=== PATIENT | female | born 2000 | race Caucasian/White ===

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

== ENCOUNTER 2019-12-01 17:58 | Emergency (ER) | payer OTHER ==
[~2019-12-01] VITALS: Ht 165.1 cm; Wt 52.2 kg
--- NOTE | 2019-12-01 19:04 | PHYS DOC ---
Past History Past Medical History: Anxiety, Other Past Surgical History: No Surgical History Smoking: Non-smoker Alcohol Use: None Drug Use: None General Adult EDM: Chief Complaint: MULTIPLE COMPLAINTS HPI: HPI: Patient is a 18-year-old female who presented to ER today for evaluation of head injury and left hand injury. Patient says she was talking on the phone with somebody, had an argument on the phone with that person, she became very upset, she then punched the window with her left hand and then hit her head against a window as well. Patient denies loss of consciousness. Patient complained of headache and facial pain. Patient also complained of left hand pain. Patient adamantly denies suicidal ideation, denies homicidal patient. Review of Systems: Review of Systems: Constitutional: Denies fever or chills Eyes: Denies change in visual acuity HENT: Denies nasal congestion or sore throat Respiratory: Denies cough or shortness of breath Cardiovascular: Denies chest pain or edema GI: Denies abdominal pain, nausea, vomiting, bloody stools or diarrhea : Denies dysuria Musculoskeletal: Denies back pain , positive for left hand pain. Integument: Denies rash Neurologic: Positive for headache, no focal weakness or sensory changes Endocrine: Denies polyuria or polydipsia Lymphatic: Denies swollen glands Psychiatric: Denies depression or anxiety Heart Score: Risk Factors: Risk Factors: DM, Current or recent (<one month) smoker, HTN, HLP, family h istory of CAD, obesity. Risk Scores: Score 0 - 3: 2.5% MACE over next 6 weeks - Discharge Home Score 4 - 6: 20.3% MACE over next 6 weeks - Admit for Clinical Observation Score 7 - 10: 72.7% MACE over next 6 weeks - Early Invasive Strategies Allergies: Allergies: Allergies Coded Allergies Type Severity Reaction Last Updated Verified No Known Drug Allergies 08/12/14 No Physical Exam: PE: Constitutional: Well developed, well nourished, no acute distress, non-toxic appearance. [] HENT: Normocephalic, bilateral external ears normal, oropharynx moist, no oral exudates, nose normal. [] Eyes: PERRLA, EOMI, conjunctiva normal, no discharge. Right periorbital contusion, no hyphema, no conjunctival hemorrhage. Neck: Normal range of motion, no tenderness, supple, no stridor. [] Cardiovascular:Heart rate regular rhythm, no murmur [] Lungs & Thorax: Bilateral breath sounds clear to auscultation [] Abdomen: Bowel sounds normal, soft, no tenderness, no masses, no pulsatile masses. [] Skin: Warm, dry, no erythema, no rash. [] Back: No tenderness, no CVA tenderness. [] Extremities: There is bruised and tender to palpation at the fourth and fifth metacarpal bone of the left hand ,no cyanosis, no clubbing, ROM intact, no edema. [] Neurologic: Alert and oriented X 3, normal motor function, normal sensory function, no focal deficits noted. [] Psychologic: Affect normal, judgement normal, mood normal. [] Current Patient Data: Vital Signs: Vital Signs Date Time Temp Pulse Resp B/P (MAP) Pulse Ox O2 Delivery O2 Flow Rate FiO2 12/01/19 18:00 98.2 94 20 128/74 (92) 97 12/01/19 17:58 Room Air EKG: EKG: [] Radiology/Procedures: Radiology/Procedures: [][place] [address] IMAGING REPORT Signed PATIENT: EARL PARR ACCOUNT: [id number] : 2000 LOCATION: ER AGE: 18 SEX: F EXAM STATUS: REG ER ORD. PHYSICIAN: TULIO BAUTISTA DO REASON: hit head and face through window PROCEDURE: CT HEAD AND MAXILLOFACIAL WO Exam: CT head and maxillofacial without contrast INDICATION: Hit head and face through window TECHNIQUE: Sequential axial images through the head and face were obtained without the administration of IV contrast. Comparisons: None FINDINGS: Head: No focal parenchymal lesion or hemorrhage is identified. There is no midline shift or sulcal effacement. No acute vascular territory infarction is identified. Jenkins-white distinction is preserved. The ventricular system is within normal limits without compression hydrocephalus. The basal cisterns are well maintained. Face: Mild extra cranial soft tissue scalp contusion overlying the right globe. Globes and intraorbital contents are normal. The visualized portions of the paranasal sinuses and mastoid air cells are well-pneumatized. No acute fractures. IMPRESSION: 1. No acute intracranial abnormality. 2. Mild extra cranial soft tissue scalp contusion overlying the right globe. Underlying globe and intraorbital contents are unremarkable. No acute fracture. Exposure: One or more of the following in the visualized dose reduction techniques were utilized for this examination: 1. Automated exposure control 2. Adjustment of the MA and/or KV according to patient size Use of iterative of reconstructive technique Electronically signed by: Laila Gonzalez MD (12/01/2019 9:03 PM) [id number] DICTATED AND SIGNED BY: LAILA GONZALEZ MD DATE: 12/01/192102 CC: TULIO BAUTISTA DO; MAUREEN LEE ~ Course & Med Decision Making: Course & Med Decision Making Pertinent Labs and Imaging studies reviewed. (See chart for details) [] Dragon Disclaimer: Dragon Disclaimer: This electronic medical record was generated, in whole or in part, using a voice recognition dictation system. Departure Departure: Impression: Primary Impression: Facial contusion Additional Impressions: Contusion of left hand Head injury Disposition: 01 HOME/RESIDENCE PRIOR TO ADM Condition: STABLE Referrals: MAUREEN LEE (PCP) please follow up with your doctor next week as needed Patient Instructions: Contusion, Facial or Scalp Contusion, Head Injury, Adult Scripts Ibuprofen (IBUPROFEN) 400 Mg Tablet 1 TAB PO PRN Q6HRS PRN for PAIN, #20 TAB Prov: TULIO BAUTISTA DO 12/01/19 Justification of Admission: Justification of Admission: Justification of Admission Dx: N/A TULIO BAUTISTA DO Dec 01, 2019 19:04
[2019-12-01 20:30] VITALS: BP 113/74
[2019-12-01] MEDS ORDERED: NEOMY/BACITR/POLYMYXIN OINT PACKET. TP ONE (20:35)
[2019-12-01] MEDS ORDERED: ACETAMINOPHEN 500 MG TABLET PO ONE (20:45)
--- NOTE | 2019-12-01 21:06 | RAD ---
Exam: CT head and maxillofacial without contrast INDICATION: Hit head and face through window TECHNIQUE: Sequential axial images through the head and face were obtained without the administration of IV contrast. Comparisons: None FINDINGS: Head: No focal parenchymal lesion or hemorrhage is identified. There is no midline shift or sulcal effacement. No acute vascular territory infarction is identified. Jenkins-white distinction is preserved. The ventricular system is within normal limits without compression hydrocephalus. The basal cisterns are well maintained. Face: Mild extra cranial soft tissue scalp contusion overlying the right globe. Globes and intraorbital contents are normal. The visualized portions of the paranasal sinuses and mastoid air cells are well-pneumatized. No acute fractures. IMPRESSION: 1. No acute intracranial abnormality. 2. Mild extra cranial soft tissue scalp contusion overlying the right globe. Underlying globe and intraorbital contents are unremarkable. No acute fracture. Exposure: One or more of the following in the visualized dose reduction techniques were utilized for this examination: 1. Automated exposure control 2. Adjustment of the MA and/or KV according to patient size Use of iterative of reconstructive technique Electronically signed by: Laila Peña MD (12/01/2019 9:03 PM) [id number]
[2019-12-01] MEDS ORDERED: IBUP400T18 PO (21:14)
--- NOTE | 2019-12-01 21:15 | RAD ---
Exam: Left hand 3 views INDICATION: Left hand injury TECHNIQUE: Frontal, lateral and oblique views of the left hand Comparisons: None FINDINGS: Bone mineralization is normal. No acute or healed fractures. Soft tissues are unremarkable. Joint spaces are well-maintained. IMPRESSION: No acute osseous abnormality. Electronically signed by: Laila Peña MD (12/01/2019 9:12 PM) [id number]
== END 2019-12-01 21:23 | disposition home or self-care (01) ==
LOC: ER 17:58
DX: S00.83XA Contusion of other part of head, initial encounter (principal); S60.222A Contusion of left hand, initial encounter; F41.9 Anxiety disorder, unspecified; W22.8XXA Striking against or struck by other objects, initial encounter; Y93.89 Activity, other specified; Y92.89 Other specified places as the place of occurrence of the external cause; Y99.8 Other external cause status
CPT/HCPCS: 70450; 70486; 73130; 81025; 99285

== ENCOUNTER 2020-08-18 03:50 | Emergency (ER) | payer OTHER ==
[~2020-08-18] VITALS: Ht 165.1 cm; Wt 75.0 kg
[~2020-08-18 03:50] MED LIST changes: +IBUP400T18 PO
[2020-08-18] MEDS ORDERED: CLIN300C9 PO (04:11)
--- NOTE | 2020-08-18 04:11 | PHYS DOC ---
Past History Past Medical History: Anxiety, Other Past Surgical History: No Surgical History Smoking: Non-smoker Alcohol Use: None Drug Use: None Adult General HPI HPI Patient is a 19-year-old female who presents with left lower molar pain. States she has had pain in this area for the last couple of days, 6 out of 10, sharp in nature right along the gumline where the tooth meets the gum. States she does not have a dentist and would like information on local dentists. Denies headache, fever, pain or trouble swallowing, chest pain, shortness of breath, abdominal pain, nausea, vomiting, dysuria, hematuria or blood in the stool. Denies any vaginal bleeding, discharge or breakage of water as patient is 20 weeks . Patient has no complaints at this time. States she has an [employer], and knows it is a girl and has had her ultrasound done. Review of Systems Review of Systems Review of systems otherwise unremarkable except noted in HPI Allergies Allergies Allergies Coded Allergies Type Severity Reaction Last Updated Verified No Known Drug Allergies 08/12/14 No Physical Exam Physical Exam Constitutional: Well developed, well nourished, no acute distress, non-toxic appearance. [] HENT: Normocephalic, atraumatic, bilateral external ears normal, oropharynx moist, no oral exudates, nose normal. [] Eyes: conjunctiva normal, no discharge. [] Neck: Normal range of motion, no tenderness, supple, no stridor. [] Cardiovascular:Heart rate regular rhythm, no murmur [] Lungs & Thorax: Bilateral breath sounds clear to auscultation [] Abdomen: Gravid, bowel sounds normal, soft, no tenderness, no masses, no pulsatile masses. [] Skin: Warm, dry, no erythema, no rash. [] Back: No tenderness, no CVA tenderness. [] Extremities: No tenderness, no cyanosis, no clubbing, ROM intact, no edema. [] Neurologic: Alert and oriented X 3, normal motor function, normal sensory fun ction, no focal deficits noted. [] Psychologic: Affect normal, judgement normal, mood normal. [] EKG EKG [] Radiology/Procedures Radiology/Procedures [] Heart Score C/O Chest Pain: No Risk Factors: Risk Factors: DM, Current or recent (<one month) smoker, HTN, HLP, family history of CAD, obesity. Risk Scores: Risk Factors: DM, Current or recent (<one month) smoker, HTN, HLP, family history of CAD, obesity. Course & Med Decision Making Course & Med Decision Making Patient is a 19-year-old female who presents with left lower molar pain Vital signs not concerning. Physical exam noted above. Check heart tones since patient was in the ED which are 140. Politely declined dental block. Given 1 Roxicodone and Tylenol. Given Hurricaine spray and showed how to use it appropriately. Advised on pain management at home with Tylenol and Orajel. Advised to take antibiotics as prescribed as she may have a smoldering infection in the 90s. Ga ve information on local dentists and free clinics. Advised to follow-up first thing in the morning with a dentist. Gave return precautions to the ED. Patient grateful, verbalized understanding and agreed with plan of discharge. [] Dragon Disclaimer Dragon Disclaimer This electronic medical record was generated, in whole or in part, using a voice recognition dictation system. Departure Departure: Impression: Primary Impression: Pain, dental Disposition: HOME / SELF CARE / HOMELESS Condition: GOOD Referrals: MAUREEN LEE (PCP) Patient Instructions: Dental Pain, [id number] Additional Instructions: Please read all the attached information carefully. You are given information on local dentists and free clinics. Please call a dentist first thing this morning to set up of appointment as soon as possible. Please take all your clindamycin antibiotic as prescribed. Please use Tylenol and Orajel as described. Please come back to the ED with new or concerning symptoms. Scripts Clindamycin Hcl (CLINDAMYCIN HCL) 300 Mg Capsule 1 CAP PO BID for dental pain for 7 Days, #13 CAP Prov: DARIAN JASON MD 08/18/20 DARIAN JASON MD August 18, 2020 04:11
[2020-08-18] MEDS ORDERED: CLINDAMYCIN HCL 150 MG CAPSULE PO ONE (04:15)
[2020-08-18] MEDS ORDERED: oxyCODONE IR 5 MG TABLET PO PRN (04:15)
[2020-08-18] MEDS ORDERED: BENZOCAINE ONE 20% MUCOSAL SPRAY. MM (04:15)
[2020-08-18] MEDS ORDERED: ACETAMINOPHEN 500 MG TABLET PO ONE (04:15)
[2020-08-18 05:05] VITALS: BP 113/69
== END 2020-08-18 05:05 | disposition home or self-care (01) ==
LOC: ER 03:50
DX: O99.612 Diseases of the digestive system complicating pregnancy, second trimester (principal); K08.89 Other specified disorders of teeth and supporting structures; Z3A.20 20 weeks gestation of pregnancy
CPT/HCPCS: 99284